=== PATIENT | male | born 1990 | race Caucasian/White ===

== ENCOUNTER 2020-04-18 14:21 | Outpatient (REF) | payer OTHER, SELFPAY ==
[2020-04-18 18:31] LABS: Vitamin B12 444 pg/mL (200-900)
[2020-04-19 05:32] LABS: Lyme Abs Screen <0.90 index
== END 2020-04-18 14:22 | disposition home or self-care (01) ==
LOC: HO.MANLDS 14:21
PROVIDERS: PCP Internal Medicine; Visit Provider Internal Medicine
DX: H53.2 Diplopia (principal)
CPT/HCPCS: 36415; 82607; 86618

== ENCOUNTER 2020-06-29 11:02 | Outpatient (REF) | payer OTHER, SELFPAY ==
[2020-06-29 11:54] LABS: Influenza A PCR NEGATIVE (Negative); Influenza B PCR NEGATIVE (Negative); Resp Syncy Virus RNA Qual PCR NEGATIVE (Negative); SARS COV2 PCR INHOUSE NEGATIVE (Negative)
== END 2020-06-29 11:03 | disposition home or self-care (01) ==
LOC: HO.LNP 11:02
PROVIDERS: Visit Provider Family Medicine
DX: B34.9 Viral infection, unspecified (principal); Z20.822 Contact with and (suspected) exposure to COVID-19
CPT/HCPCS: 0241U